=== PATIENT | female | born 1975 | race African-American/Black ===

== ENCOUNTER 2019-01-07 08:43 | Day surgery (SDC) | payer SELFPAY | END 2019-01-07 18:40 | disposition home or self-care (01) | LOC: FASU 08:43 ==

== ENCOUNTER 2019-03-29 14:37 | Day surgery (SDC) | payer SELFPAY ==
[2019-03-22 14:27] VITALS: BMI 29.6
[~2019-03-29 14:37] MED LIST: BACITRACIN 15 GM TUBE TOPICAL OINTMENT ONE; EPINEPHrine/PF 1 MG/1 ML (1:1,000) AMPULE ONE; GUM MASTIC/STORAX/MSAL/ALCOHOL 1 DRP DROPSBTL MC ONE; HEPARIN NA (PORCINE) 5,000 UNITS/ML 1ML VIAL ONE; LIDOCAINE HCL 1% PRESERVATIVE FREE - 30ML VIAL ONE; MIDAZOLAM HCL 2 MG/2 ML SINGLE DOSE VIAL ONE; NEOSTIGMINE METHYLSULFATE 0.5 MG/ML - 10 ML MDV ONE; ONDANSETRON 4 MG/2 ML VIAL IVPB PRN; ONDANSETRON 4 MG/2 ML VIAL IVPUSH PRN; ONDANSETRON 4 MG/2 ML VIAL ONE; PROMETHAZINE HCL 25 MG/1 ML VIAL IVPUSH PRN; PROPOFOL 20 ML ONE; SCOPOLAMINE HYDROBROMIDE 1 PATCH PATCH.TD72 ONE; SUCCINYLCHOLINE CHLORIDE 200 MG/10 ML SYRINGE ONE; fentaNYL CITRATE 250 MCG/5 ML VIAL ONE; oxyCODONE HCL 5 MG TABLET PO PRN
--- NOTE | 2019-03-29 14:37 | OP ---
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
[2019-03-29] MEDS ORDERED: morphine SULFATE 4 MG/ML VIAL IVPUSH PRN (14:44)
[2019-03-29] MEDS ORDERED: LACTATED RINGERS SOLUTION 1,000 ML IV SCH (14:45)
[2019-03-29] MEDS ORDERED: ceFAZolin SODIUM 1 GM VIAL ONE (14:59)
--- NOTE | 2019-03-29 17:35 | OP ---
DATE OF OPERATION: 03/29/2019 PROCEDURE: Bilateral medial thigh lift with bilateral anterior medial thigh and knee liposuction. ATTENDING SURGEON: López Sanders MD INFORMATICS PHARMACIST: HENRY Kat PREOPERATIVE DIAGNOSIS: Cosmetic, skin laxity, and lipodystrophy to the medial thighs and knees. POSTOPERATIVE DIAGNOSIS: Cosmetic, skin laxity, and lipodystrophy to the medial thighs and knees. DESCRIPTION OF PROCEDURE: The patient is seen in the holding position. She is marked awake, aware of all risks, benefits, alternatives, and limitations to the operation aware of all planned incisions and resulting scars. She is given WILFRED hose and sequential compression stockings in the holding area. Once in the OR, she is given Ancef and subcutaneous heparin. She is then brought to the operating room, placed in a supine position. After anesthesia is given, patient is carefully placed in a low lithotomy position. All appropriate positioning aids are used, arm foams as well as foams around the legs are used to cushion any pressure points. Herron catheter is placed. The catheter is removed at the end of the procedure. She is then prepped and draped in the standard surgical fashion. Time-out is called. Patient, procedure, site, sides are verified. At this point, several 3-mm stab wound incisions are made for infiltration of wetting solution. The wetting solution in this case is a liter of lactated Ringer's with 1 ampule of 1:1000 epinephrine and 20 mL of 1% lidocaine plain. A total of 1 L is infiltrated into each leg both in the area of the planned skin resection as well as in the area of the liposuction. A full 20 minutes is awaited prior to any liposuction. Once liposuction is commenced, a SAFE technique is performed using pre and post tunneling with a 4-mm basketed cannula. The liposuction itself is performed with a Microaire 4-mm power assisted system. The total lipoaspirates are 225 mL of lipoaspirate from each leg totally. The patient is mostly loose skin and not a large quantity of fat in her legs. Liposuction, however, most of the lipoaspirate is concerned in the area of the superior medial thigh, which is the area to be resected. For this purpose, the plan is to resect skin and a small amount of subcutaneous fat without resecting any deep fat. The plan is to remove deep bulk by liposuction so as to only preserve the lymphatics. The patient, however, has been counseled on the risk of lymphedema with this operation inherently. Once liposuction is completed, the skin and fat resection is then performed, 1st on the right leg then on the left leg. Superficial fascia is preserved. Discontinuous undermining is then performed of the distal skin using a basket-tip cannula. No deeper dissection is performed. The skin at the distal skin and fat is then anchored to the deep fascia as well as the pubic tubercle where accessible with a series of sutures of 0 PDS suture from the superficial fascial system to the deep fascia pubic tubercle. Once these tension-bearing sutures are performed, the superficial fascial system is able to be closed without tension or distortion of the vulva. This is done with a series of interrupted 0 Vicryl suture buried. At this point, size 10 flat J-P drains are brought out through the anteriormost extent of the incisions, placed and secured with 2-0 skin drain sutures. The remainder of the closure is then performed with series of interrupted buried deep dermal 3-0 Monocryl suture followed by a running subcuticular 3-0 Monocryl suture. The liposuction incision was closed with a series of interrupted 4-0 nylon suture. The endpoint is smooth, even contour with good correction and no vaginovulvar distortion. The drains are placed to bulb suction. Dressings are applied with Tegaderms and eyepatches to liposuction sites. Steri-Strips, 4 x 4's, and Hypafix tape to the incisions on the medial thighs and a compressive garment. The patient is awoken from anesthesia having tolerated procedure well. She is neurovascularly intact. Transferred to recovery without complication. Jeff [id number]
[2019-03-29] MEDS: oxyCODONE HCL 5 MG TABLET PO PRN (20:24)
[2019-03-29] MEDS: CEFAZOLIN 1 GM/D5W 1 GM/50 ML BAG IVPB SCH (20:30)
[2019-03-29] MEDS ORDERED: KETOROLAC TROMETHAMINE 30 MG/1 ML VIAL IVPB ONE (22:38)
[2019-03-30] MEDS: oxyCODONE HCL 5 MG TABLET PO PRN ×3 (01:16→12:49)
[2019-03-30] MEDS: CEFAZOLIN 1 GM/D5W 1 GM/50 ML BAG IVPB SCH ×3 (03:20→08:41)
[2019-03-30 06:18] VITALS: PULSE 74
[2019-03-30] MEDS: INSULIN SLIDING SCALE (NOVOLOG) 1 VIAL SQ SCH ×3 (06:31→11:25)
[2019-03-30] MEDS ORDERED: HEPARIN NA (PORCINE) 5,000 UNITS/ML 1ML VIAL SQ SCH (08:00)
--- NOTE | 2019-03-30 08:43 | PN ---
Progress Note (short form) - Note Progress Note: ANETHESIA POSTOP 44 YO FEMALE POD#1 S/P BL THIGH LIFT, LIPOSUCTION, GETA Patient resting in bed. Pain tolerable. No n/v. VSS, Afebrile Continue current care. Encouraged ambulation and IS. Educated pt re: scopolamine tts. No anesthetic complications.
[2019-03-30] MEDS ORDERED: KETOROLAC TROMETHAMINE 30 MG/1 ML VIAL IVPUSH PRN (08:45)
--- NOTE | 2019-03-30 08:45 | PN ---
Progress Note (short form) - Note Progress Note: POD 1 VSS AF NV in tact Pain controlled but will reqiure PO pain meds at home Ambulating ISMAEL's thin and functioning No collection SQ heparin starting now ok for discharge
[2019-03-30 09:47] VITALS: BP 95/66; TEMP 98.3
--- NOTE | 2019-04-13 15:59 | PATH ---
Surgical Pathology Report Patient Name: HCARISMA AGUILAR Med. Rec. #: [id number] /Age/Gender: 1975 (Age: 44) / F Account: [id number] Location: [facility] MED-SUR[facility] Taken: 03/29/2019 Received: 03/29/2019 Reported: 04/13/2019 Physicians: López Sanders Specimen(s) Received A: RIGHT INNER THIGH B: LEFT INNER THIGH Clinical History Cosmesis Final Diagnosis A. RIGHT INNER THIGH, COSMESIS: SKIN AND ADIPOSE TISSUE, DESCRIBED (GROSS EXAMINATION ONLY). B. LEFT INNER THIGH, COSMESIS: SKIN AND ADIPOSE TISSUE, DESCRIBED (GROSS EXAMINATION ONLY). Electronically Signed Kristin Calloway M.D. Gross Description A. Received in formalin, labeled "right inner thigh (gross only cosmesis)" is a 19 x 9 cm portion of dark starkey skin with underlying adipose tissue excised to a depth of 1.6 cm. No sections are submitted, gross only. B. . Received in formalin, labeled "left inner thigh (gross only cosmesis)" is a 18.5 x 9 cm portion of dark starkey skin with underlying adipose tissue excised to a depth of 1.3 cm. No sections are submitted, gross only. AE/04/13/2019 ebram/04/13/2019
== END 2019-03-30 13:28 | disposition home or self-care (01) ==
LOC: FASUSAT 14:37 → FM/S 14:37 → FASU 14:37 → FASUSAT 03-30 13:28
PROVIDERS: ATTEND Plastic Surgery
PROC: 0J0L0ZZ Alteration of Right Upper Leg Subcutaneous Tissue and Fascia, Open Approach (ICD-10-PCS; 2019-03-29)
PROC: 0J0M3ZZ Alteration of Left Upper Leg Subcutaneous Tissue and Fascia, Percutaneous Approach (ICD-10-PCS; 2019-03-29)
PROC: 0J0L3ZZ Alteration of Right Upper Leg Subcutaneous Tissue and Fascia, Percutaneous Approach (ICD-10-PCS; 2019-03-29)
PROC: 0J0P3ZZ Alteration of Left Lower Leg Subcutaneous Tissue and Fascia, Percutaneous Approach (ICD-10-PCS; 2019-03-29)
PROC: 0J0N3ZZ Alteration of Right Lower Leg Subcutaneous Tissue and Fascia, Percutaneous Approach (ICD-10-PCS; 2019-03-29)
PROC: 0J0M0ZZ Alteration of Left Upper Leg Subcutaneous Tissue and Fascia, Open Approach (ICD-10-PCS; principal; 2019-03-29 09:00)
DX: Z41.1 Encounter for cosmetic surgery (principal); L57.4 Cutis laxa senilis; E88.1 Lipodystrophy, not elsewhere classified
CPT/HCPCS: 82962; 84703; 88300-TC; 94760; J1644